=== PATIENT | male | born 1955 | race Caucasian/White ===

== ENCOUNTER 2022-04-02 10:00 | Outpatient (RCR) | payer MEDICARE, BC, SELFPAY | END 2022-12-18 23:59 | disposition home or self-care (01) | PROVIDERS: Visit Provider Specialist | DX: M54.50 Low back pain, unspecified (principal); Z51.89 Encounter for other specified aftercare | CPT/HCPCS: 97012; 97032; 97110; 97140; 97161; 97164 ==